=== PATIENT | female | born 1950 | race Hispanic/Latino ===

== ENCOUNTER 2019-06-19 21:51 | Emergency (ER) | payer MEDICARE ==
[2019-06-19 23:58] LABS: Alanine Aminotransferase 11 units/L (7-56); Albumin 4.4 g/dL (3.9-5); BUN/Creatinine Ratio 18; Blood Urea Nitrogen 16 mg/dL (7-17); Calcium 10.9 mg/dL (8.4-10.2); Hemolysis Index 50
[2019-06-20 00:11] LABS: Basophils # (Auto) 0.3 K/mm3 (0.0-0.1); Basophils % (Auto) 1.9 % (0.0-1.8); Eosinophils # (Auto) 0.3 K/mm3 (0.0-0.4); Eosinophils % (Auto) 1.8 % (0.0-4.3); Hematocrit 41.5 % (30.3-42.9); Hemoglobin 13.9 gm/dl (10.1-14.3); Lymphocytes # (Auto) 1.3 K/mm3 (1.2-5.4); Lymphocytes % (Auto) 9.5 % (13.4-35.0); Mean Corpuscular HGB Conc 34 % (30-34); Mean Corpuscular Volume 84 fl (79-97); Monocytes # (Auto) 0.6 K/mm3 (0.0-0.8); Monocytes % (Auto) 4.2 % (0.0-7.3); Platelet Count 428 K/mm3 (140-440); Red Blood Count 4.95 M/mm3 (3.65-5.03); Red Cell Distribution Width 13.1 % (13.2-15.2)
--- NOTE | 2019-06-20 01:06 | Emergency Department Report ---
ED General Adult HPI - General Chief complaint: Abdominal Pain Stated complaint: ABD PAIN Time Seen by Provider: 06/20/19 00:54 Source: patient, RN notes reviewed, old records reviewed Mode of arrival: Stretcher Limitations: No Limitations - History of Present Illness Initial comments: The patient is a pleasant 69-year-old female who is not known to this provider previously, and typically follows with the [facility]. The patient presents to the ER today with a complaint of nontraumatic bilateral lower quadrant abdominal pain, that moves is a band. It started after heavy lifting. The patient denies headache, neck pain, chest pain, shortness of breath, vomiting, hematuria, dysuria, hematemesis and bright red blood per rectum. She reports t hat she was lifting some cat litter, but it was not heavier than typically. She thinks that she might of pulled a muscle. She's not sure. There is no endorsement of constitutional symptoms at this time. -: Gradual Location: abdomen Radiation: abdomen Severity scale (0 -10): 8 Quality: aching Consistency: intermittent Improves with: rest Worsens with: movement - Related Data Home Medications Medication Instructions Recorded Confirmed Last Taken Amitriptyline [Elavil] 25 mg PO DAILY 09/11/13 09/11/13 09/11/13 Buprenorphine/Naloxone [Suboxone 2 1 each PO DAILY 09/11/13 09/11/13 09/11/13 mg-0.5 mg SL Film] FLUoxetine [Prozac] 20 mg PO QDAY 09/11/13 09/11/13 09/11/13 Losartan [Cozaar] 50 mg PO DAILY 09/11/13 09/11/13 09/11/13 Metformin HCl [Fortamet ER] 1,000 mg PO BID 09/11/13 09/11/13 09/11/13 Simvastatin 40 mg PO QDAY 09/11/13 09/11/13 09/11/13 Venlafaxine [Effexor] 75 mg PO DAILY 09/11/13 09/11/13 09/11/13 atenoloL [Tenormin] 50 mg PO DAILY 09/11/13 09/11/13 09/10/13 traMADoL [Ultram] 50 mg PO Q4H PRN 09/11/13 09/11/13 09/11/13 Previous Rx's Medication Instructions Recorded Last Taken Type Promethazine [Phenergan] 25 mg PO Q6H PRN #30 tablet 09/11/13 Unknown Rx Allergies Allergy/AdvReac Type Severity Reaction Status Date / Time milk AdvReac Nausea Verified 09/11/13 16:08 ED Review of Systems ROS: Stated complaint: ABD PAIN Other details as noted in HPI Constitutional: denies: fever Eyes: denies: eye discharge Respiratory: denies: wheezing Cardiovascular: denies: syncope Gastrointestinal: abdominal pain. denies: nausea, vomiting, constipation, hematemesis, melena Genitourinary: denies: dysuria Musculoskeletal: denies: myalgia Skin: denies: lesions Psychiatric: anxiety Hematological/Lymphatic: denies: easy bleeding ED Past Medical Hx - Past Medical History Previous Medical History?: Yes Hx Hypertension: Yes Hx Diabetes: Yes Hx Arthritis: Yes Hx Psychiatric Treatment: Yes (depression and anxiety) Additional medical history: macular degeneration, High Cholesterol, Legally blind - Surgical History Past Surgical History?: Yes Additional Surgical History: Bilateral knee surgery - Social History Smoking Status: Never Smoker Substance Use Type: None - Medications Home Medications: Home Medications Medication Instructions Recorded Confirmed Last Taken Type Amitriptyline [Elavil] 25 mg PO DAILY 09/11/13 09/11/13 09/11/13 History Buprenorphine/Naloxone [Suboxone 2 1 each PO DAILY 09/11/13 09/11/13 09/11/13 History mg-0.5 mg SL Film] FLUoxetine [Prozac] 20 mg PO QDAY 09/11/13 09/11/13 09/11/13 History Losartan [Cozaar] 50 mg PO DAILY 09/11/13 09/11/13 09/11/13 History Metformin HCl [Fortamet ER] 1,000 mg PO BID 09/11/13 09/11/13 09/11/13 History Promethazine [Phenergan] 25 mg PO Q6H PRN #30 tablet 09/11/13 Unknown Rx Simvastatin 40 mg PO QDAY 09/11/13 09/11/13 09/11/13 History Venlafaxine [Effexor] 75 mg PO DAILY 09/11/13 09/11/13 09/11/13 History atenoloL [Tenormin] 50 mg PO DAILY 09/11/13 09/11/13 09/10/13 History traMADoL [Ultram] 50 mg PO Q4H PRN 09/11/13 09/11/13 09/11/13 History ED Physical Exam - General Limitations: No Limitations General appearance: alert, in no apparent distress - Head Head exam: Present: atraumatic, normocephalic - Eye Eye exam: Present: normal appearance, EOMI. Absent: nystagmus - ENT ENT exam: Present: normal exam, normal orophraynx, mucous membranes moist, normal external ear exam - Neck Neck exam: Present: normal inspection, full ROM - Respiratory Respiratory exam: Present: normal lung sounds bilaterally. Absent: respiratory distress - Cardiovascular Cardiovascular Exam: Present: regular rate, normal rhythm, normal heart sounds. Absent: bradycardia, tachycardia, irregular rhythm, systolic murmur, diastolic murmur, rubs, gallop - GI/Abdominal GI/Abdominal exam: Present: soft. Absent: distended, tenderness, guarding, re bound, rigid, pulsatile mass - Extremities Exam Extremities exam: Present: normal inspection, full ROM, other (2+ pulses noted in the bilateral upper and lower extremities. The pelvis is stable. There is no long bony tenderness. The muscular compartments are soft. There is no redness, pus, streaking or erythema.). Absent: pedal edema, calf tenderness - Back Exam Back exam: Present: normal inspection, full ROM. Absent: tenderness, CVA tenderness (R), CVA tenderness (L), paraspinal tenderness, vertebral tenderness - Neurological Exam Neurological exam: Present: alert, oriented X3, normal gait, other (there is no facial droop. The tongue is midline. Extraocular movements are intact bilaterally. Speaking in full sentences. Hearing is grossly intact. 5 out of 5 strength bilateral upper and lower extremities. Sensation is intact to light touch bilateral upper and lower extremities.). Absent: motor sensory deficit - Psychiatric Psychiatric exam: Present: anxious - Skin Skin exam: Present: warm, dry, intact, normal color. Absent: rash ED Course Vital Signs 06/19/19 06/20/19 06/20/19 22:03 01:39 01:40 Temperature 97.1 F L Pulse Rate 78 82 Respiratory 18 18 18 Rate Blood Pressure 133/82 135/70 [Left] O2 Sat by Pulse 98 98 98 Oximetry - Reevaluation(s) Reevaluation #1: 06/20/19 01:06 [place] food service representative aware Filled ID Written Drug QTY Days Prescriber Rx # Pharmacy * Refills Daily Dose Pymt Type [employer]OR OPERATOR 05/28/2019 2 05/13/2019 OXYCODONE HCL 10 MG TABLET 60.0 30 EL L[facility] [id number] [facility] ([id number]) 0 30.0 [place] [place] 04/29/2019 2 04/29/2019 OXYCODONE HCL 10 MG TABLET 60.0 30 EL L[facility] [id number] [facility] ([id number]) 0 30.0 [place] 04/02/2019 2 04/02/2019 OXYCODONE HCL 10 MG TABLET 60.0 15 PH CAR [id number] [facility] ([id number]) 0 60.0 [place] 03/20/2019 2 03/18/2019 OXYCODONE-ACETAMINOPHEN 10-325 60.0 15 PH CAR [id number] [facility] ([id number]) 0 60.0 [place] 03/07/2019 2 03/06/2019 OXYCODONE-ACETAMINOPHEN 10-325 60.0 15 PH CAR [id number] [facility] ([id number]) 0 60.0 [place] 02/22/2019 2 02/20/2019 OXYCODONE-ACETAMINOPHEN 10-325 60.0 15 PH CAR [id number] [facility] ([id number]) 0 60.0 [place] 02/09/2019 2 02/09/2019 OXYCODONE-ACETAMINOPHEN 10-325 60.0 15 PH CAR [id number] [facility] ([id number]) 0 60.0 [place] 01/27/2019 2 01/26/2019 OXYCODONE-ACETAMINOPHEN 10-325 60.0 15 PH CAR [id number] [facility] ([id number]) 0 60.0 [place] 01/13/2019 2 01/12/2019 OXYCODONE-ACETAMINOPHEN 10-325 60.0 15 PH CAR [id number] [facility] ([id number]) 0 60.0 [place] 12/31/2018 2 12/29/2018 OXYCODONE-ACETAMINOPHEN 10-325 60.0 15 PH CAR [id number] [facility] ([id number]) 0 60.0 [place] 12/18/2018 2 12/15/2018 OXYCODONE-ACETAMINOPHEN 10-325 60.0 15 PH CAR [id number] [facility] ([id number]) 0 60.0 [place] 12/04/2018 2 12/02/2018 OXYCODONE-ACETAMINOPHEN 10-325 60.0 15 PH CAR [id number] [facility] ([id number]) 0 60.0 [place] 11/20/2018 2 11/17/2018 OXYCODONE-ACETAMINOPHEN 10-325 60.0 15 PH CAR [id number] [facility] ([id number]) 0 60.0 [place] 11/06/2018 2 11/03/2018 OXYCODONE-ACETAMINOPHEN 10-325 60.0 15 PH CAR [id number] [facility] ([id number]) 0 60.0 [place] 10/23/2018 2 10/20/2018 OXYCODONE-ACETAMINOPHEN 10-325 60.0 15 PH CAR [id number] [facility] ([id number]) 0 60.0 [place] 10/09/2018 2 10/06/2018 OXYCODONE-ACETAMINOPHEN 10-325 60.0 15 PH CAR [id number] [facility] ([id number]) 0 60.0 [place] 09/25/2018 2 09/23/2018 OXYCODONE-ACETAMINOPHEN 10-325 60.0 15 PH CAR [id number] [facility] ([id number]) 0 60.0 [place] Reevaluation #2: 06/20/19 02:25 Differential diagnosis, including not limited to: Constipation, urinary tract infection, inflammatory bowel disease, malignancy, appendicitis, colitis, diverticulitis, poled muscle Assessment and plan: 69-year-old female with nontraumatic bilateral lower quadrant abdominal pain. She is afebrile with reassuring vital signs. Given her advanced age, a CT scan with IV contrast is obtained. Suggests a probable ovarian malignancy, with probable secondary and reactive ascites. Clinically at this point time do not suspect acute surgical process. No fever, no leukocytosis, no abdominal tenderness, rebound or guarding, she is walking around with a steady gait. Given that she is with the [facility], I will contact their physician coordinator, in order to coordinate close outpatient follow-up and definitive diagnostic workup for these findings. Extensive discussion was had with patient and family regarding significance of findings, and need to closely follow up with an outpatient physician. Reevaluation #3: 06/20/19 02:52 Contacted [facility] coordinating physician, Dr. Watters. He indicates the patient will be given a follow-up appointment with gynecology on Saturday, and oncology later on this week, Saturday or . ED Medical Decision Making - Lab Data Result diagrams: 06/19/19 22:31 06/19/19 22:31 Vital Signs 06/19/19 06/20/19 06/20/19 22:03 01:39 01:40 Temperature 97.1 F L Pulse Rate 78 82 Respiratory 18 18 18 Rate Blood Pressure 133/82 135/70 [Left] O2 Sat by Pulse 98 98 98 Oximetry Lab Results 06/19/19 06/19/19 06/19/19 Range/Units 22:31 22:31 22:31 WBC 13.9 H (4.5-11.0) K/mm3 RBC 4.95 (3.65-5.03) M/mm3 Hgb 13.9 (10.1-14.3) gm/dl Hct 41.5 (30.3-42.9) % MCV 84 (79-97) fl MCH 28 (28-32) pg MCHC 34 (30-34) % RDW 13.1 L (13.2-15.2) % Plt Count 428 (140-440) K/mm3 Lymph % (Auto) 9.5 L (13.4-35.0) % [place] % (Auto) 4.2 (0.0-7.3) % Eos % (Auto) 1.8 (0.0-4.3) % Baso % (Auto) 1.9 H (0.0-1.8) % Lymph # 1.3 (1.2-5.4) K/mm3 [place] # 0.6 (0.0-0.8) K/mm3 Eos # 0.3 (0.0-0.4) K/mm3 Baso # 0.3 H (0.0-0.1) K/mm3 Seg Neutrophils % 82.6 H (40.0-70.0) % Seg Neutrophils # 11.5 H (1.8-7.7) K/mm3 Sodium 137 (137-145) mmol/L Potassium 4.6 (3.6-5.0) mmol/L Chloride 97.0 L (98-107) mmol/L Carbon Dioxide 23 (22-30) mmol/L Anion Gap 22 mmol/L BUN 16 (7-17) mg/dL Creatinine 0.9 (0.7-1.2) mg/dL Estimated GFR > 60 ml/min BUN/Creatinine Ratio 18 % Glucose 155 H (65-100) mg/dL Calcium 10.9 H (8.4-10.2) mg/dL Magnesium (1.7-2.3) mg/dL Total Bilirubin 0.30 (0.1-1.2) mg/dL AST 15 (5-40) units/L ALT 11 (7-56) units/L Alkaline Phosphatase 64 (35-129) units/L Total Creatine Kinase (30-135) units/L Total Protein 7.6 (6.3-8.2) g/dL Albumin 4.4 (3.9-5) g/dL Albumin/Globulin Ratio 1.4 % Lipase 24 (13-60) units/L // Range/Units 22:31 WBC (4.5-11.0) K/mm3 RBC (3.65-5.03) M/mm3 Hgb (10.1-14.3) gm/dl Hct (30.3-42.9) % MCV (79-97) fl MCH (28-32) pg MCHC (30-34) % RDW (13.2-15.2) % Plt Count (140-440) K/mm3 Lymph % (Auto) (13.4-35.0) % [place] % (Auto) (0.0-7.3) % Eos % (Auto) (0.0-4.3) % Baso % (Auto) (0.0-1.8) % Lymph # (1.2-5.4) K/mm3 [place] # (0.0-0.8) K/mm3 Eos # (0.0-0.4) K/mm3 Baso # (0.0-0.1) K/mm3 Seg Neutrophils % (40.0-70.0) % Seg Neutrophils # (1.8-7.7) K/mm3 Sodium (137-145) mmol/L Potassium (3.6-5.0) mmol/L Chloride (98-107) mmol/L Carbon Dioxide (22-30) mmol/L Anion Gap mmol/L BUN (7-17) mg/dL Creatinine (0.7-1.2) mg/dL Estimated GFR ml/min BUN/Creatinine Ratio % Glucose (65-100) mg/dL Calcium (8.4-10.2) mg/dL Magnesium 2.30 (1.7-2.3) mg/dL Total Bilirubin (0.1-1.2) mg/dL AST (5-40) units/L ALT (7-56) units/L Alkaline Phosphatase (35-129) units/L Total Creatine Kinase 49 (30-135) units/L Total Protein (6.3-8.2) g/dL Albumin (3.9-5) g/dL Albumin/Globulin Ratio % Lipase (13-60) units/L - EKG Data 06/20/19 02:22 The EKG today shows a sinus rhythm, 77 bpm, left axis deviation, left anterior fascicular block, low voltage, motion artifact, QTC is somewhat prolonged, there is no endorsement of chest pain, the EKG today appears to be unchanged from prior EKG from 09/11/2013. Not a STEMI. - Radiology Data Radiology results: report reviewed, image reviewed CT ABDOMEN AND PELVIS WITH IV CONTRAST INDICATION: lower abd pain. COMPARISON: None available. TECHNIQUE: All CT scans at this facility use dose modulation, automated exposure control, iterative reconstruction or weight based dosing, when appropriate, to reduce radiation dose to as low as reasonably achievable. FINDINGS: Lung Bases: No significant abnormality. Skeletal System: No acute abnormality. ABDOMEN: Liver: No significant abnormality. Gallbladder: Cholelithiasis. Bile Ducts: No significant abnormality. Pancreas: No significant abnormality. Spleen: No significant abnormality. Adrenals: No significant abnormality. Right Kidney: No significant abnormality. Left Kidney: No significant abnormality. Upper GI tract: No significant abnormality. Lymph Nodes: Shotty retroperitoneal and mesenteric nodes are noted. Aorta: No significant abnormality. Additional Findings: There is mild perihepatic and perisplenic ascites. There is mild stranding in the omentum adjacent to the proximal transverse colon. PELVIS: Colon: No acute abnormality. Diverticulosis is noted. Urinary Bladder and Distal Ureters: No significant abnormality. Appendix: No significant abnormality. Lymph Nodes: No significant adenopathy. There is mild pelvic ascites. Additional Findings: There is a cystic and solid left ovarian lesion. Cystic component measures 4.2 cm on axial image 159. Soft tissue component measures 3.3 cm on image 168. IMPRESSION: 1. Cystic and solid left ovarian lesion is concerning for a primary ovarian neoplasm. Ascites could be malignant. There is minimal stranding within the omentum adjacent to the proximal transverse colon which could be due to very mild carcinomatosis. There are shotty retroperitoneal and mesenteric nodes. 2. Incidental findings, as above. Signer Name: Tushar George MD Signed: 06/20/2019 1:14 AM Workstation Name: [email or web address] Critical care attestation.: If time is entered above; I have spent that time in minutes in the direct care of this critically ill patient, excluding procedure time. ED Disposition Clinical Impression: Abdominal pain, Ovarian mass, left Disposition: DC-01 TO HOME OR SELFCARE Is pt being admited?: No Does the pt Need Aspirin: No Condition: Stable Instructions: Abdominal Pain (ED) Additional Instructions: Continue current outpatient pain medications. Do not take metformin medication for the next 2 days, if patient takes this medication. Advance diet as tolerated, rest, avoid heavy lifting, and avoid strenuous physical activities. Follow up as soon as possible with her outpatient [facility] physician, to arrange for definitive tissue diagnosis of left-sided ovarian lesion. CT scan findings today demonstrated nonspecific fluid in the abdominal cavity, and left-sided o varian mass, suspicious for cancer, tumor, malignancy. It is very important to closely follow-up as an outpatient to have a definitive diagnosis establish, so appropriate treatment can be recommended. Please return to the emergency room right away with projectile vomiting, change in mental status, confusion, inability to tolerate liquid feeds, fevers and chills, new, worsened or different symptoms not present on the initial emergency room evaluation. We contacted the [facility] and discussed her case with their coordinating hub physician, the patient will be contacted by the [facility], and she will be given an outpatient appointment with gynecology this coming Saturday, the , and oncology, later on next week, either Saturday or , [facility] to contact patient with definitive dates, times an appointment details. Referrals: DR COSME [Other] - 3-5 Days
[2019-06-20] MEDS ORDERED: ACETAMINOPHEN 325 MG TAB PO ONE (01:13)
[2019-06-20] MEDS ORDERED: DICYCLOMINE 10 MG CAP PO ONE (01:13)
[2019-06-20] MEDS ORDERED: SODIUM CHLORIDE 0.9% 500 ML 500 ML IV ONE (01:13)
--- NOTE | 2019-06-20 02:19 | Cat Scan Report ---
CT ABDOMEN AND PELVIS WITH IV CONTRAST INDICATION: lower abd pain. COMPARISON: None available. TECHNIQUE: All CT scans at this facility use dose modulation, automated exposure control, iterative reconstructi on or weight based dosing, when appropriate, to reduce radiation dose to as low as reasonably achieva ble. FINDINGS: Lung Bases: No significant abnormality. Skeletal System: No acute abnormality. ABDOMEN: Liver: No significant abnormality. Gallbladder: Cholelithiasis. Bile Ducts: No significant abnormality. Pancreas: No significant abnormality. Spleen: No significant abnormality. Adrenals: No significant abnormality. Right Kidney: No significant abnormality. Left Kidney: No significant abnormality. Upper GI tract: No significant abnormality. Lymph Nodes: Shotty retroperitoneal and mesenteric nodes are noted. Aorta: No significant abnormality. Additional Findings: There is mild perihepatic and perisplenic ascites. There is mild stranding in th e omentum adjacent to the proximal transverse colon. PELVIS: Colon: No acute abnormality. Diverticulosis is noted. Urinary Bladder and Distal Ureters: No significant abnormality. Appendix: No significant abnormality. Lymph Nodes: No significant adenopathy. There is mild pelvic ascites. Additional Findings: There is a cystic and solid left ovarian lesion. Cystic component measures 4.2 c m on axial image 159. Soft tissue component measures 3.3 cm on image 168. IMPRESSION: 1. Cystic and solid left ovarian lesion is concerning for a primary ovarian neoplasm. Ascites could be malignant. There is minimal stranding within the omentum adjacent to the proximal transverse colon which could be due to very mild carcinomatosis. There are shotty retroperitoneal and mesenteric node s. 2. Incidental findings, as above. Signer Name: Tushar George MD Signed: 06/20/2019 2:14 AM Workstation Name: [email or web address]
[2019-06-20 02:42] LABS: Bacteria,Urine 1+ /HPF (Negative); Bilirubin,Urine NEG (Negative); Blood,Urine NEG (Negative); Calcium Oxalate Crystals,Urine FEW; Color,Urine Yellow (Yellow); Mucus,Urine FEW /HPF; Urobilinogen,Urine < 2.0 mg/dL (<2.0); WBC,Urine < 1.0 /HPF (0.0-6.0)
[2019-06-20] MEDS ORDERED: HYDROmorphone 1 MG/1 ML INJ IV ONE (03:05)
[2019-06-20 03:56] VITALS: BP 149/76
== END 2019-06-20 03:45 | disposition home or self-care (01) ==
LOC: ED 21:51
DX: N83.9 Noninflammatory disorder of ovary, fallopian tube and broad ligament, unspecified (principal); R10.31 Right lower quadrant pain; R10.32 Left lower quadrant pain; I10 Essential (primary) hypertension; E11.9 Type 2 diabetes mellitus without complications; M19.90 Unspecified osteoarthritis, unspecified site; E78.00 Pure hypercholesterolemia, unspecified; Z98.890 Other specified postprocedural states; Z79.899 Other long term (current) drug therapy; Z91.011 Allergy to milk products
CPT/HCPCS: 36415; 74177; 80053; 81001; 82550; 83690; 83735; 85025; 93005; 93010; 96374; 99285; J1170; J7040; Q9967; 96361